=== PATIENT | male | born 1980 | race Two or more races ===

== ENCOUNTER 2024-10-20 11:03 | Emergency (ER) | payer OTHER ==
[~2024-10-20] VITALS: Ht 180.3 cm; Wt 65.8 kg
[2024-10-20] MEDS ORDERED: ACID REDUCER20 M1 (11:38)
[2024-10-20] MEDS ORDERED: 0.9 % SODIUM CHLORIDE 1,000 ML IV SCH (12:30)
[2024-10-20 14:04] LABS: HEMATOCRIT 39.5 % (39.0-48.0); HEMOGLOBIN 13.1 g/dL (13-16.00); MEAN CELL VOLUME 94.6 fL (80.0-100.00); MEAN CORPUSCULAR HEMOGLOBIN 31.3 pg (27.00-32.0); MEAN CORPUSCULAR HGB CONC 33.1 g/dl (32.0-36.0); PLATELET COUNT 250 K/uL (150-450); RED BLOOD COUNT 4.18 M/uL (4.00-6.00); RED CELL DISTRIBUTION WIDTH 13.9 % (11.5-14.5)
[2024-10-20 14:18] LABS: CALCIUM 9.1 mg/dL (8.5-10.1); CREATININE SERUM 0.9 mg/dL (0.70-1.30); GFR 91.25; POTASSIUM 3.56 mEq/L (3.5-5.1)
[2024-10-20 14:21] LABS: INR 1.09; PARTIAL THROMBOPLASTIN TIME 25.4 SECONDS (22.0-34.0)
[2024-10-20 14:28] LABS: PROTHROMBIN TIME 11.8 SECONDS (9.0-11.5)
[2024-10-20] MEDS ORDERED: CEFTRIAXONE SODIUM 1,000 MG VIAL IV ONE (14:45)
[2024-10-20] MEDS ORDERED: MORPHINE SULFATE 4 MG/ML CARTRIDGE IV ONE (14:45)
[2024-10-20 14:56] LABS: URINE APPEARANCE Clear; URINE BILIRRUBIN Negative (NEGATIVE); URINE BLOOD Trace; URINE COLOR Yellow; URINE GLUCOSE Negative (NEGATIVE); URINE KETONE Negative (NEGATIVE); URINE LEUKOCYTE Negative; URINE NITRATE Negative; URINE PROTEIN Negative (NEGATIVE); URINE UROBILINOGEN 0.2 E.U./dl
[2024-10-20 14:59] LABS: URINE RBC 10.8 uL (0.0-20.8)
[2024-10-20 15:06] LABS: URINE BACTERIA 1.2 uL (0.0-1933); URINE EPITHELIAL CELLS 0.1 uL (0.0-38.8); URINE WBC 0.6 uL (0.0-23.2)
[2024-10-20] MEDS ORDERED: CEFTRIAXONE SODIUM 1,000 MG VIAL ONE (15:18)
[2024-10-20] MEDS ORDERED: MORPHINE SULFATE 4 MG/ML VIAL IV ONE (21:45)
[2024-10-20] MEDS ORDERED: DEXAMETHASONE SODIUM PHOSPHATE 4 MG/ML VIAL IV ONE (21:45)
[2024-10-20] MEDS ORDERED: DEXAMETHASONE SODIUM PHOSPHATE 4 MG/ML VIAL ONE (21:47)
== END 2024-10-20 22:46 | disposition designated cancer center or children's hospital (05) ==
LOC: ER 11:04
PROVIDERS: Emergency Medicine
DX: K62.3 Rectal prolapse (principal)